=== PATIENT | male | born 1980 | race Two or more races ===

== ENCOUNTER 2018-09-14 08:53 | Emergency (ER) | payer SELFPAY ==
[~2018-09-14] VITALS: Ht 165.1 cm; Wt 75.0 kg
[2018-09-14] MEDS ORDERED: HYDROCODONE/ACETAMINOPHEN 5/325MG TABLET PO ONE (10:45)
[2018-09-14 12:02] VITALS: BP 132/81
== END 2018-09-14 12:03 | disposition home or self-care (01) ==
LOC: ER 08:53
DX: S00.83XA Contusion of other part of head, initial encounter (principal); H57.12 Ocular pain, left eye; Y08.89XA Assault by other specified means, initial encounter; Y93.89 Activity, other specified; Y92.89 Other specified places as the place of occurrence of the external cause; Y99.8 Other external cause status
CPT/HCPCS: 70486; 99284